=== PATIENT | male | born 1995 | race Caucasian/White ===

== ENCOUNTER 2019-10-19 00:49 | Emergency (ER) | payer OTHER ==
[~2019-10-19] VITALS: Ht 167.6 cm; Wt 49.0 kg
[2019-10-19] MEDS ORDERED: IBUPROFEN 600MG TABLET PO ONE (01:45)
[2019-10-19 03:02] VITALS: BP 122/67
== END 2019-10-19 03:05 | disposition home or self-care (01) ==
LOC: ER 01:10
DX: S60.221A Contusion of right hand, initial encounter (principal); W22.8XXA Striking against or struck by other objects, initial encounter; Y93.89 Activity, other specified; Y92.89 Other specified places as the place of occurrence of the external cause; Y99.8 Other external cause status
CPT/HCPCS: 29125; 73130; 99282; 99283